=== PATIENT | male | born 1950 ===

== ENCOUNTER 2016-10-14 17:53 | Emergency (ER) | payer MEDICARE, MEDICAID ==
[2016-10-14] MEDS ORDERED: NO HOME MEDICATION XX (18:14)
[2016-10-14] MEDS ORDERED: DICLOFENAC SODI75 M2 PO (19:47)
[2016-10-14] MEDS ORDERED: NORCO 5-325 TA1 EACH PO (19:47)
[2016-10-14] MEDS ORDERED: CYCLOBENZAPRINE5 M1 PO (19:47)
== END 2016-10-14 19:53 ==
LOC: EDMED 17:53
DX: S16.1XXA Strain of muscle, fascia and tendon at neck level, initial encounter (principal); V49.40XA Driver injured in collision with unspecified motor vehicles in traffic accident, initial encounter; Y92.410 Unspecified street and highway as the place of occurrence of the external cause